=== PATIENT | male | born 1970 | race Caucasian/White ===

== ENCOUNTER → 2019-01-20 | Outpatient (CLI) | payer BC ==
--- NOTE | 2019-01-21 00:54 | PAIN ---
DATE OF SERVICE: 01/20/2019 INITIAL CONSULTATION FOR PAIN CLINIC CHIEF COMPLAINT: Low back and right lower extremity pain. HISTORY OF PRESENT ILLNESS: The patient is a 48-year-old male who presents with history of pain for about 4 months, increasing with time and no specific injury or action that he is aware of, but has increasing pain and has a history of lumbar surgery in 2000. The patient reports the pain has been increasing; worse with walking, standing, change in positions and lying down at night, it has been waking him from sleep at least 3 or 4 times; does not affect his bowel or bladder control, but does affect his ability to walk. It is disturbing his function at work. He is on his feet most of his working day. He is not using assistive devices, however, to get around and walk. The patient reports it is worse in the morning and then as the day goes by, it gets better, but then worse at night. Again, the patient reports it is in the low back, on the right side, radiating to posterior gluteus, lateral thigh, lateral anterior thigh, medial thigh, some into the groin as well on the right side at times. The patient also reports pain in the left knee. He has had a right total knee replacement in the past in approximately 2015, but the left side is very painful as well. The patient reports the pain in his back and leg is constant, sharp, stabbing, shooting, again changes during the day with activity and lying down, worse and a burning pain as well in the back itself and the leg. The patient reports taking hydrocodone does help decrease the pain; also ibuprofen 3 times a day, but it does not seem to do as much for the pain. The patient has not had any formal physical therapies recently, but did have some chiropractic treatment, which was not helpful and it was within the last 2 months. The patient reports no loss of function, but significant fatigability, especially with the right leg when he is standing and walking during the day. PAST MEDICAL HISTORY: Significant for hearing loss; possible hypertension, not completely diagnosed; hyperlipidemia; arthritis. PREVIOUS SURGERY: Include appendectomy in 2016, right knee replaced in 2015 and lumbar surgery in 2000. The patient is unsure of the specifics of this. CURRENT MEDICATIONS: Include hydrocodone, ibuprofen, sildenafil and Flexeril. FAMILY HISTORY: Significant for cancers, diabetes, strokes. SOCIAL HISTORY: The patient does not smoke. Does not use any alcohol, has not had alcohol in about 5 years. Reports he is and has children living in-home, lives locally in [place], [place] and works for [employer], mostly on his feet during his working day with multiple physical demands from his employment. ALLERGIES: The patient has no known drug allergies. REVIEW OF SYSTEMS: The patient's review of systems is positive for those items mentioned in history of present illness. All systems reviewed and otherwise negative. It is complete, full and well documented on the patient's chart. PHYSICAL EXAMINATION: VITAL SIGNS: The patient's blood pressure is 142/104, pulse 87, respirations 16, temperature 98.2 degrees Fahrenheit, height is 5 feet 11 inches, weight is 274 pounds. GENERAL: The patient is awake, alert, oriented, appropriate, very pleasant demeanor. HEENT: Head is normocephalic, atraumatic. Extraocular movements are intact and symmetrical. Oral cavity: Mucous membranes moist and pink. Dentition is intact. NECK: Shows anterior throat supple without palpable lymphadenopathy noted. Swallow reflex symmetrical. CHEST: Shows normal on inspection. Breath sounds are clear to auscultation bilaterally. HEART: Shows S1, S2 clear. No murmurs auscultated. ABDOMEN: Soft, nontender, nondistended. No palpable organomegaly is noted. No rebound or guarding demonstrated. BACK: Shows spine grossly in the midline. Normal-appearing thoracic kyphosis. Lumbar lordotic curvature slightly flattened with well-healed surgical scar in the low lumbar distribution. Lumbar paraspinous muscle shows symmetrical on inspection; on palpation shows some moderate tenderness diffusely, but only diffusely without specific radiation. The patient has good rotational motion of lumbar spine, both laterally greater than 10 degrees right and left as well as extension greater than 10 degrees, forward flexion 45 degrees without significant pain reported. No tenderness over the spinous processes, sacrum or sacroiliac regions with palpation as well. EXTREMITIES: The patient's lower extremities show deep tendon reflexes at 1+ in the patellar and tendo calcaneus tendons and equal. Motor exam is strong with 5/5 dorsiflexion, extension. He also has a well-healed surgical scar over the right knee. Peripheral pulses are 1+ posterior tibial. No peripheral edema is noted bilaterally. Straight leg raise noted to be positive on the left at about 45 degrees with some significant pain radiating to the lateral thigh and anterior thigh, which is decreased with knee flexion. right side positive, left side negative. The patient is able to stand, stand on his toes without difficulty or loss of balance, walks with a normal-appearing gait, does not appear to favor the right or left lower extremity, not using any assistive devices to ambulate. SKIN: Shows warm and dry, good turgor. No edema. Does have some psoriasis on the elbows. IMPRESSION: This is a 48-year-old male with: 1. Approximate 4-month history of increasing pain, low back, right lower extremity with radicular qualities. 2. Plain films of the lumbar spine showing [id number] multilevel degenerative changes, greatest at L5-S1 level with MRI scan still pending. 3. Hypertension. 4. Arthritis. 5. Previous back surgery. PLAN: Options were discussed with the patient including conservative medical management, physical therapy, interventional techniques. We will first wait for his MRI scan to be performed and it has been ordered and once this has returned, we will review this with the patient and come up with a plan of action for the findings for his low back and right lower extremity pain. The patient will follow up with MRI scan. Once that is obtained, again we will have the patient return and discuss the findings and plan of care at that time. In the meantime, the patient will continue with stretching and strengthening exercises, staying active as possible and as tolerated. KAMARI STOREY MD DR: RAÚL/jake JOB#: [id number] / [id number] AAD Brenner
== END | disposition home or self-care (01) ==
LOC: PNCL 13:52
PROVIDERS: ATTEND Anesthesiology
DX: M79.604 Pain in right leg (principal); M54.5 Low back pain; I10 Essential (primary) hypertension; M19.90 Unspecified osteoarthritis, unspecified site; E78.5 Hyperlipidemia, unspecified; Z90.49 Acquired absence of other specified parts of digestive tract; Z96.651 Presence of right artificial knee joint
CPT/HCPCS: G0463